=== PATIENT | male | born 1945 | race Caucasian/White ===

== ENCOUNTER → 2022-08-25 11:19 | Outpatient (BNVA) | payer BC, SELFPAY | PROVIDERS: PCP Physician Assistant Medical; Referring Provider Family Medicine; Visit Provider Orthopaedic Surgery | DX: M48.062 Spinal stenosis, lumbar region with neurogenic claudication (principal); M51.37 Other intervertebral disc degeneration, lumbosacral region | CPT/HCPCS: 72110 ==

== ENCOUNTER 2022-10-02 10:16 | Outpatient (CLI) | payer MEDICARE, SELFPAY ==
--- NOTE | 2022-10-02 | CT_ITS ---
WS: [id number] CT LUMBAR SPINE NONCONTRAST FOLLOWED BY CT MYELOGRAM TECHNIQUE: Noncontrast CT lumbar spine followed by CT myelogram with coronal and sagittal reformatted images. CLINICAL INFORMATION: low back pain COMPARISON: None. DLP: 944.69 mGy.cm (accession [id number]), 797.25 mGy.cm (accession [id number]) All CT scans at [facility] use at least one of these dose optimization techniques: automated e xposure control; mA and/or kV adjustment per patient size (includes targeted exams where dose is matc hed to clinical indication); or iterative reconstruction. FINDINGS: Mild lumbar curve. Grade 1 anterolisthesis L5 on S1 measuring 7 mm with chronic spondylolysis. L1-L2: Normal. L2-L3: Minimal disc bulging. Spinal canal and foramen are patent. Mild facet arthropathy. L3-L4: Mild annular bulging. RIGHT eccentric disc bulging with contact of the exiting RIGHT L3 nerve root with mild RIGHT greater than LEFT foraminal narrowing. Mild facet arthropathy. L4-L5: Mild annular bulging with a shallow central protrusion. Slight impingement traversing L5 nerve roots bilaterally. Moderate central canal stenosis. Moderate arthropathy ligamentum flavum hypertrop hy. Bilateral foraminal protrusions with mild to moderate bilateral foraminal narrowing. L5-S1: Grade 1 anterolisthesis L5 on S1. Chronic spondylolysis. Moderate central canal stenosis. Slig ht impingement traversing S1 nerve roots bilaterally. Moderate facet arthropathy. Moderate to severe RIGHT and moderate LEFT foraminal narrowing. Small esophageal hiatal hernia. Adrenal glands are normal. Visualized pelvic bony structures: Normal. Paravertebral soft tissues: Normal. CT/CT lumbar spine wo con* [id number] IMPRESSION: 1. Mild lumbar curve. Grade 1 anterolisthesis L5 on S1 chronic spondylolysis. 2. Moderate central canal stenosis L4-L5 and L5-S1 with moderate facet arthrop athy ligamentum flavum hypertrophy. 3. Small RIGHT foraminal protrusion with mild RIGHT L3-L4 foraminal narrowing. 4. Mild to moderate bilateral L4-L5 foraminal narrowing. 5. Moderate to severe RIGHT and moderate LEFT bony foraminal narrowing L5-S1.
--- NOTE | 2022-10-02 10:30 | CT_ITS ---
WS: [id number] CT LUMBAR SPINE NONCONTRAST FOLLOWED BY CT MYELOGRAM TECHNIQUE: Noncontrast CT lumbar spine followed by CT myelogram with coronal and sagittal reformatted images. CLINICAL INFORMATION: low back pain COMPARISON: None. DLP: 944.69 mGy.cm (accession [id number]), 797.25 mGy.cm (accession [id number]) All CT scans at [facility] use at least one of these dose optimization techniques: automated e xposure control; mA and/or kV adjustment per patient size (includes targeted exams where dose is matc hed to clinical indication); or iterative reconstruction. FINDINGS: Mild lumbar curve. Grade 1 anterolisthesis L5 on S1 measuring 7 mm with chronic spondylolysis. L1-L2: Normal. L2-L3: Minimal disc bulging. Spinal canal and foramen are patent. Mild facet arthropathy. L3-L4: Mild annular bulging. RIGHT eccentric disc bulging with contact of the exiting RIGHT L3 nerve root with mild RIGHT greater than LEFT foraminal narrowing. Mild facet arthropathy. L4-L5: Mild annular bulging with a shallow central protrusion. Slight impingement traversing L5 nerve roots bilaterally. Moderate central canal stenosis. Moderate arthropathy ligamentum flavum hypertrop hy. Bilateral foraminal protrusions with mild to moderate bilateral foraminal narrowing. L5-S1: Grade 1 anterolisthesis L5 on S1. Chronic spondylolysis. Moderate central canal stenosis. Slig ht impingement traversing S1 nerve roots bilaterally. Moderate facet arthropathy. Moderate to severe RIGHT and moderate LEFT foraminal narrowing. Small esophageal hiatal hernia. Adrenal glands are normal. Visualized pelvic bony structures: Normal. Paravertebral soft tissues: Normal. CT/CT lumbar spine w con [id number] IMPRESSION: 1. Mild lumbar curve. Grade 1 anterolisthesis L5 on S1 chronic spondylolysis. 2. Moderate central canal stenosis L4-L5 and L5-S1 with moderate facet arthrop athy ligamentum flavum hypertrophy. 3. Small RIGHT foraminal protrusion with mild RIGHT L3-L4 foraminal narrowing. 4. Mild to moderate bilateral L4-L5 foraminal narrowing. 5. Moderate to severe RIGHT and moderate LEFT bony foraminal narrowing L5-S1.
--- NOTE | 2022-10-02 10:30 | IR_ITS ---
WS: [id number] MYELOGRAM LUMBAR SPINE Fluoroscopic guided lumbar myelogram CLINICAL INFORMATION: pain COMPARISON: None. TECHNIQUE: The procedure, including risks, benefits, and complications, were discussed with the patie nt who agreed to proceed. A timeout was performed to confirm correct patient, procedure, and site. Using sterile technique, the patient was prepped and draped in the usual sterile fashion. After admin istration of local anesthesia using 1% preservative-free lidocaine and using fluoroscopic guidance, a 22-gauge spinal needle was advanced into the subarachnoid space at the L2-L3 level. Subsequently 13 cc of Omnipaque 240 was administered into the thecal sac. The needle was removed and hemostasis was a chieved. Spot fluoroscopic images were obtained. FLUOROSCOPIC TIME: 2min [id number] # of spot films: 10 Spot fluoroscopic images demonstrate mild lumbar curve convex RIGHT. Aortic calcification. Grade 1 an terolisthesis L5 on S1. Chronic spondylolysis L5-S1. Disc space narrowing worse L5-S1 with vacuum dis c phenomenon. Please see CT myelogram report for additional detail. IR/IR myelogram sp lumbar [id number] IMPRESSION: 1. Uncomplicated lumbar myelogram. 2. Please see CT myelogram report for additional detail.
== END 2022-10-02 10:17 | disposition home or self-care (01) ==
PROVIDERS: PCP Family Medicine; Visit Provider Orthopaedic Surgery
DX: M48.062 Spinal stenosis, lumbar region with neurogenic claudication (principal); M43.8X6 Other specified deforming dorsopathies, lumbar region; M48.061 Spinal stenosis, lumbar region without neurogenic claudication; M47.817 Spondylosis without myelopathy or radiculopathy, lumbosacral region; M51.26 Other intervertebral disc displacement, lumbar region
CPT/HCPCS: 62304; 72131; 72132; Q9966

== ENCOUNTER → 2022-10-20 08:18 | Outpatient (BNVA) | payer MEDICARE, SELFPAY | PROVIDERS: PCP Family Medicine; Visit Provider Orthopaedic Surgery | DX: M48.062 Spinal stenosis, lumbar region with neurogenic claudication (principal) | CPT/HCPCS: 99214 ==

== ENCOUNTER → 2022-12-23 11:01 | Outpatient (BNVA) | payer MEDICARE, SELFPAY | PROVIDERS: PCP Family Medicine; Visit Provider Anesthesiology Pain Medicine | DX: M48.062 Spinal stenosis, lumbar region with neurogenic claudication (principal); M43.17 Spondylolisthesis, lumbosacral region; M47.816 Spondylosis without myelopathy or radiculopathy, lumbar region | CPT/HCPCS: 99204 ==

== ENCOUNTER → 2023-01-26 13:08 | Outpatient (BNVA) | payer MEDICARE, SELFPAY | PROVIDERS: PCP Family Medicine; Visit Provider Anesthesiology Pain Medicine | DX: M54.16 Radiculopathy, lumbar region (principal); Z71.89 Other specified counseling | CPT/HCPCS: 64483; 64484; J1100; J3490 ==

== ENCOUNTER → 2023-03-01 10:37 | Outpatient (BNVA) | payer MEDICARE, SELFPAY | PROVIDERS: PCP Family Medicine; Visit Provider Anesthesiology Pain Medicine | DX: M48.062 Spinal stenosis, lumbar region with neurogenic claudication (principal); M43.17 Spondylolisthesis, lumbosacral region; M47.816 Spondylosis without myelopathy or radiculopathy, lumbar region | CPT/HCPCS: 99214 ==

== ENCOUNTER → 2023-04-26 14:21 | Outpatient (BNVA) | payer MEDICARE, SELFPAY | PROVIDERS: PCP Family Medicine; Visit Provider Anesthesiology Pain Medicine | DX: M54.16 Radiculopathy, lumbar region (principal); M48.062 Spinal stenosis, lumbar region with neurogenic claudication | CPT/HCPCS: 64483; 64484; J1100; J3490 ==

== ENCOUNTER → 2023-05-10 10:06 | Outpatient (BNVA) | payer MEDICARE, SELFPAY | PROVIDERS: PCP Family Medicine; Visit Provider Anesthesiology Pain Medicine | DX: M48.062 Spinal stenosis, lumbar region with neurogenic claudication (principal); M43.17 Spondylolisthesis, lumbosacral region; M47.816 Spondylosis without myelopathy or radiculopathy, lumbar region | CPT/HCPCS: 99214 ==